=== PATIENT | male | born 1950 | race Caucasian/White ===

== ENCOUNTER 2019-10-22 05:12 | Observation (INO) ==
--- NOTE | 2019-09-23 15:23 | PAT Medication Instructions ---
Medication Instructions Date of Service September 23, 2019 Home Medications acetaminophen [Tylenol 8 Hour] 650 mg PO TID PRN aspirin [Aspir-81] 81 mg PO PM atenolol 25 mg PO BID atorvastatin 20 mg PO QAM cyanocobalamin (vitamin B-12) 1,000 mcg PO QAM fluticasone propionate [Flonase Allergy Relief] 1 spray INTRANASAL BID PRN hydrochlorothiazide 50 mg PO QAM lisinopril 20 mg PO QAM metformin 1,000 mg PO BID nifedipine [Adalat CC] 90 mg PO QAM omega 0-qqu-zew-fish oil [Fish Oil] 1 cap PO QAM omeprazole 20 mg PO QAM tramadol 50 mg PO TID PRN STOP taking 2 weeks before surgery omega 4-fnf-jdx-fish oil [Fish Oil] 1 cap PO QAM DO NOT take the morning of surgery cyanocobalamin (vitamin B-12) 1,000 mcg PO QAM hydrochlorothiazide 50 mg PO QAM lisinopril 20 mg PO QAM metformin 1,000 mg PO BID Take morning of surgery With a small sip of water, OTHERWISE NOTHING TO EAT OR DRINK AFTER MIDNIGHT: acetaminophen [Tylenol 8 Hour] 650 mg PO TID PRN (okay to take up to 4 hours prior to surgery if needed) atenolol 25 mg PO BID atorvastatin 20 mg PO QAM fluticasone propionate [Flonase Allergy Relief] 1 spray INTRANASAL BID PRN (if needed) nifedipine [Adalat CC] 90 mg PO QAM omeprazole 20 mg PO QAM tramadol 50 mg PO TID PRN (okay to take up to 4 hours prior to surgery if needed) Take evening before surgery acetaminophen [Tylenol 8 Hour] 650 mg PO TID PRN (if needed) aspirin [Aspir-81] 81 mg PO PM atenolol 25 mg PO BID fluticasone propionate [Flonase Allergy Relief] 1 spray INTRANASAL BID PRN (if needed) metformin 1,000 mg PO BID tramadol 50 mg PO TID PRN (if needed) Other Notes If you have any questions please call us at [phone] or [phone] or [phone] or [phone]
--- NOTE | 2019-09-26 15:47 | Anesthesiology Consultation ---
Date of Service September 26, 2019 Assessment & Plan (1) Encounter for pre-operative examination: Chart Review Chart Review: Acceptable Risk for Surgery (pending preop Covid testing) and Patient seen in Pre Admission Testing Per PAT appt on 09/26/19, pt traveled to [place] a few weeks ago to visit daughter. Plans to go this weekend to drop off daughter's dog. Will not be going out in public. Otherwise no other travel. Educated patient to follow up with surgeon's office regarding Covid testing. Educated on importance of self quarantining, social distancing and wearing mask in public both for the patient and household contacts. Teaching & Discussion Pre-Anesthesia Teaching/Discussion Notes: Instructed NPO after midnight before surgery,except medications with 15 cc of water. Medication instructions provided according to the PAT guidelines. History Surgery Operation Date: 10/22/19 08:50 Proposed Procedures p Right Total Knee Arthroplasty - Feliciano Golden MD Height/Weight Height: 5 ft 4 in Weight: 99.2 kg Allergies Allergy/AdvReac Type Severity Reaction Status Date / Time No Known Allergies Allergy Unverified 09/23/19 10:48 Medications Home Medications Medication Instructions Recorded Confirmed Last Taken acetaminophen [Tylenol 8 Hour] 650 mg PO TID PRN 09/23/19 09/23/19 Unknown aspirin [Aspir-81] 81 mg PO PM 09/23/19 09/23/19 Unknown atenolol 25 mg PO BID 09/23/19 09/23/19 Unknown atorvastatin 20 mg PO QAM 09/23/19 09/23/19 Unknown cyanocobalamin (vitamin B-12) 1,000 mcg PO QAM 09/23/19 09/23/19 Unknown fluticasone propionate [Flonase 1 spray INTRANASAL BID PRN 09/23/19 09/23/19 Unknown Allergy Relief] hydrochlorothiazide 50 mg PO QAM 09/23/19 09/23/19 Unknown lisinopril 20 mg PO QAM 09/23/19 09/23/19 Unknown metformin 1,000 mg PO BID 09/23/19 09/23/19 Unknown nifedipine [Adalat CC] 90 mg PO QAM 09/23/19 09/23/19 Unknown omega 0-wbs-jrj-fish oil [Fish Oil] 1 cap PO QAM 09/23/19 09/23/19 Unknown omeprazole 20 mg PO QAM 09/23/19 09/23/19 Unknown tramadol 50 mg PO TID PRN 09/23/19 09/23/19 Unknown Past Medical History Medical History Diabetes mellitus, type 2 NIDDM- well controlled and stable GERD (gastroesophageal reflux disease) Stable and controlled Herniated disc Lumbar area Hiatal hernia Hyperlipidemia Hypertension Osteoarthritis Sleep apnea CPAP Exercise / Class Metabolic Activity II 4-5 Yardwork/Stairs/Walk up hill (one flight of stairs-no chest pain or SOB) Past Family History Family History Father Diabetes Colon cancer Past Surgical History Surgical History History of colonoscopy History of left knee replacement History of tooth extraction History of total knee replacement LEFT Hx of umbilical hernia repair X2 Past Anesthesia History No Hx of Anesthesia Complications and No Family Hx of Anesthesia Complications History of PONV No Hx of PONV and No Hx of Motion Sickness Social History Smoking Status: Never smoker Do You Dip or Chew Tobacco: No Hx Alcohol Use: Yes Alcohol type: wine alcohol intake frequency: holidays/special occasions only Hx Substance Use: No substance use type: does not use Review of Systems Patient denies chest pain, shortness of breath, dyspnea on exertion, cough, wheezing, palpitations. No hx of seizures, stroke, [place]. No hx of blood clots or blood transfusions Physical Exam Vital Signs VITALS BP 155/89 P 68 TEMP 98.5 SP02 96% RESP 16 Constitutional no acute distress ENMT Mouth: no TMJ clicking Thyromental Distance: > or= 3.5 Finger Breadths Mallampati Class: III Top partial denture Neck + short neck, + thick neck and + limited neck extension (mild ) Respiratory normal respiratory effort; no respiratory distress Auscultation: lungs clear to auscultation bilaterally; no wheezes Cardiovascular Rate/Rhythm: regular rate and regular rhythm Heart Sounds: no murmur Vessels: no carotid bruit Musculoskeletal Spine: + pain with cervical ROM (minimal) Neurologic moves all extremities Psychiatric Orientation: alert Testing Laboratory Results 09/26/19 16:00 09/26/19 16:00 PT 10.3 Seconds (9.0-12.0) 09/26/19 16:00 INR 1.0 (0.9-1.1) 09/26/19 16:00 APTT 25.9 Seconds (21.0-31.0) 09/26/19 16:00 Hemoglobin A1c 6.6 % (4.5-5.6) H 09/26/19 16:00 Blood Type A Positive 09/26/19 16:00 Antibody Screen NEGATIVE 09/26/19 16:00 Electrocardiogram Date: 09/26/19 Findings: + NSR @ (65) Chest X-Ray Date: 09/26/19 Findings: + NAD
--- NOTE | 2019-09-26 16:18 | XRay Report ---
XR chest Pre-admission PA/Lat CLINICAL HISTORY: pat preoperative evaluation COMPARISON STUDY: 07/15/2015 FINDINGS: The bones soft tissues and hemidiaphragms are normal. The cardiomediastinal silhouette is n ormal. The lungs are clear. The pulmonary vasculature is normal. IMPRESSION: Negative chest. ACT 112: Negative or not required by law. The above report was generated using voice recognition software. It may contain grammatical, syntax or spelling errors. Electronically signed by: Les Alvares M.D. 09/26/2019 4:16 PM
[2019-09-26 16:33] LABS: Basophils # (auto) 0.01 K/uL (0-0.2); Basophils % (auto) 0.2 %; Eosinophils # (auto) 0.09 K/uL (0-0.5); Eosinophils % (auto) 1.9 %; Hematocrit (blood only) 41.5 % (42-52); Hemoglobin 14.4 g/dL (14.0-18.0); Immature Granulocytes # (auto) 0.03 K/uL (0.00-0.02); Immature Granulocytes % (auto) 0.6 %; Lymphocytes # (auto) 1.95 K/uL (1.2-3.4); Mean Corpuscular Hemoglobin 31.2 pg (25-34); Mean Corpuscular Hgb Conc 34.7 g/dL (32-36); Mean Corpuscular Volume 89.8 fL (80-100); Mean Platelet Volume 9.3 fL (7.4-10.4); Monocytes # (auto) 0.62 K/uL (0.11-0.59); Neutrophils # (auto) 2.06 K/uL (1.4-6.5); Neutrophils % (auto) 43.3 %; Platelet Count 253 K/uL (130-400); RDW Standard Deviation 42.6 fL (36.4-46.3); Red Blood Count 4.62 M/uL (4.7-6.1); White Blood Count 4.76 K/uL (4.8-10.8)
--- NOTE | 2019-09-26 16:37 | Electrocardiogram Report ---
Test Reason : Blood Pressure : / mmHG Vent. Rate : 065 BPM Atrial Rate : 065 BPM P-R Int : 178 ms QRS Dur : 084 ms QT Int : 434 ms P-R-T Axes : 014 -05 038 degrees QTc Int : 451 ms Normal sinus rhythm Normal ECG When compared with ECG of 15-JUL-2015 09:16, No significant change was found Confirmed by Get Cuellar ([id number]) on 09/26/2019 4:36:33 PM Referred By: Feliciano Golden Confirmed By:Get Cuellar
[2019-09-26 16:39] LABS: BUN Creatinine Ratio 15.3 (10-20); C Reactive Protein 0.35 mg/dl (0-0.29); Calcium 9.5 mg/dl (8.5-10.1); Creatinine Clr Calc Pharmacy 93.9 ml/min; Est GFR (African American) 106.2; Est GFR (Non-African American) 91.6; Potassium 3.5 mmol/L (3.5-5.1)
[2019-09-26 16:44] LABS: Partial Thromboplastin Ratio 0.9; Partial Thromboplastin Time 25.9 Seconds (21.0-31.0); Prothrombin Time 10.3 Seconds (9.0-12.0)
[2019-09-27 05:53] LABS: Estimated Average Glucose 143 mg/dl; Hemoglobin A1C 6.6 % (4.5-5.6)
[~2019-10-22 05:12] MED LIST: LR 500ML BOLUS, THEN 15ML/HR IV SCH
[2019-10-22] MEDS ORDERED: FAMOTIDINE 20 MG TAB PO SCH (06:00)
[2019-10-22] MEDS ORDERED: METOCLOPRAMIDE HCL 10 MG TABLET PO SCH (06:00)
[2019-10-22] MEDS ORDERED: TRANEXAMIC ACID 1,000 MG **IV Intra-op IV SCH (06:00)
[2019-10-22] MEDS ORDERED: CeleBREX 200 MG CAP PO SCH (06:00)
[2019-10-22] MEDS ORDERED: LR 60ML/HR IV SCH (06:00)
[2019-10-22] MEDS ORDERED: ACETAMINOPHEN 500 MG TAB PO SCH (06:00)
[2019-10-22] MEDS ORDERED: CEFAZOLIN 2000MG 2,000 MG/15 ML SYR IV SCH (06:00)
[2019-10-22] MEDS ORDERED: BUPIVACAINE LIPOSOME/PF 266 MG, BUPIVACAINE/EPINEPHRINE 50 ML, SODIUM CHLORIDE 0.9% 30 ... INFIL SCH (06:00)
[2019-10-22] MEDS ORDERED: GABAPENTIN 300 MG CAP PO SCH (06:00)
[2019-10-22] MEDS ORDERED: BUPIVACAINE 0.5 % 5 MG/1 ML PF 10ML VIAL ONE (06:20)
[2019-10-22] MEDS ORDERED: fentaNYL citrate 100 MCG/2 ML VIAL ONE (06:24)
[2019-10-22] MEDS ORDERED: MIDAZOLAM HCL 1 MG/ML 2ML VIAL ONE (06:24)
[2019-10-22] MEDS ORDERED: BUPIVACAINE/EPINEPHRINE 0.25% 1:200,000 30 ML VIAL ONE (06:29)
[2019-10-22] MEDS ORDERED: SODIUM CHLORIDE 0.9% PF 50 ML VIAL ONE (06:29)
[2019-10-22] MEDS ORDERED: BUPIVACAINE LIPOSOME 1.3% 266 MG/20 ML VIAL ONE (06:29)
[2019-10-22] MEDS ORDERED: BACITRACIN INJ 50,000 UNIT VIAL ONE (06:29)
[2019-10-22] MEDS ORDERED: ATROPINE SULFATE 0.1 MG/ML 10ML SYR IV PRN (06:38)
[2019-10-22] MEDS ORDERED: ePHEDrine sulfate 50 MG/ML AMP IV PRN (06:38)
[2019-10-22] MEDS ORDERED: ONDANSETRON INJ 2 MG/ML 2 ML VIAL IV PRN ×2 (06:38→09:56)
[2019-10-22] MEDS ORDERED: fentaNYL citrate 100 MCG/2 ML VIAL IV PRN (06:38)
--- NOTE | 2019-10-22 06:51 | History & Physical Bridge Note ---
Date of Service October 22, 2019 History & Physical Bridge Note I have examined the patient, reviewed the History & Physical and in the interval since the performance of the History & Physical I have noted the following changes of clinical significance: no changes noted
[2019-10-22] MEDS ORDERED: PROPOFOL IV EMULSION 10 MG/ML 20 ML VIAL IV ONE ×2 (07:03→07:53)
--- NOTE | 2019-10-22 08:30 | Post Operative Brief Note ---
PG Immediate Post Op with CF Date of Surgery October 22, 2019 Pre & Post Diagnosis Operation Date: 10/22/19 07:00 Pre-Op Diagnosis: Right Knee Advanced Degenerative Joint Disease Post-Op Diagnosis: Right Knee Advanced Degenerative Joint Disease I identified the patient and participated in the time-out.: Yes Procedure Operation Date: 10/22/19 07:00 Actual Procedures p Right Total Knee Arthroplasty(Right) - Feliciano Golden MD Surgeon Feliciano Golden MD Tape Calender Yuki, PAC Estimated Blood Loss 50 Findings Consistent with Post-Op Diagnosis Fluids 1300 cc Specimens Specimen Description: A. Right Knee Bone and Tissue Drains Juan Catheter Anesthesia Type Spinal MAC Complications none Disposition Accompanied Patient To Recovery: No Disposition: Recovery Room
--- NOTE | 2019-10-22 08:53 | XRay Report ---
TWO VIEWS RIGHT KNEE CLINICAL HISTORY: Postoperative examination. FINDINGS: AP and crosstable lateral portable views of the right knee are obtained. A right knee arthr oplasty is in near anatomic alignment. There has been undersurface remodeling of the patella. No acut e fracture is seen. There are expected postoperative changes around the knee including skin clips, so ft tissue edema, and subcutaneous gas. IMPRESSION: Expected postoperative changes status post right knee arthroplasty. No acute fracture is seen. ACT 112: Negative or not required by law. Electronically signed by: Sj Dai M.D. 10/22/2019 8:52 AM
--- NOTE | 2019-10-22 09:29 | Anesthesiology Progress Note ---
Date of Service October 22, 2019 Anesthesia Post Procedure Vital Signs Vital Signs: Temp Pulse Pulse Resp BP Pulse Ox 10/22/19 09:25 98.2 F 74 18 148/84 H 96 10/22/19 09:15 75 18 146/76 H 95 10/22/19 09:05 76 18 135/71 96 10/22/19 08:55 75 16 132/81 93 10/22/19 08:45 72 16 134/74 100 10/22/19 08:35 97.2 F L 74 12 125/70 99 10/22/19 06:05 98.1 F 68 18 156/94 H 96 10/22/19 05:39 99.0 F 74 20 175/91 H 96 Transfer of Care Handoff Completed per policy Notes Mental Status: alert / awake / arousable and participated in evaluation Patient Amnestic to Procedure: Yes Nausea / Vomiting: adequately controlled Pain: adequately controlled Airway Patency, RR, SpO2: stable & adequate BP & HR: stable & adequate Hydration State: stable & adequate Neuraxial Anesthesia: was administered and sensory block is resolving Anesthetic Complications: no major complications apparent and Pt Satisfied with anesthetic care
[2019-10-22] MEDS ORDERED: DEXTROSE 50% 50 ML SYRINGE IV PRN (09:56)
[2019-10-22] MEDS ORDERED: bisacodyL 10 MG SUPP PR PRN (09:56)
[2019-10-22] MEDS ORDERED: TAMSULOSIN HCL 0.4 MG CAP PO PRN (09:56)
[2019-10-22] MEDS ORDERED: METOCLOPRAMIDE HCL INJ 5 MG/ML 2 ML VIAL IV PRN (09:56)
[2019-10-22] MEDS ORDERED: MAGNESIUM HYDROXIDE SUSP 30 ML UDC PO PRN (09:56)
[2019-10-22] MEDS ORDERED: GLUCAGON FOR INJ 1 MG VIAL SQ PRN (09:56)
[2019-10-22] MEDS ORDERED: HYDROmorphone INJ 0.5 MG/0.5 ML SYR IV PRN (09:56)
[2019-10-22] MEDS ORDERED: FLUTICASONE PROPIONATE NA SPR 16 GM BTL NAE PRN (09:56)
[2019-10-22] MEDS ORDERED: GLUCOSE 40% GEL 15 GM TUBE PO PRN (09:56)
[2019-10-22] MEDS ORDERED: GLUCOSE 10 TABS/TUBE PO PRN (09:56)
[2019-10-22] MEDS ORDERED: ATORVASTATIN 20 MG TAB PO SCH (09:56)
[2019-10-22] MEDS ORDERED: ALUMINUM/MAGNESIUM SUSP 30 ML UDC PO PRN (09:56)
[2019-10-22] MEDS ORDERED: NALOXONE HCL 0.4 MG/1 ML VIAL/CARP IV PRN (09:56)
[2019-10-22] MEDS ORDERED: CARBOHYDRATES FOR HYPOGLYCEMIA PO PRN (09:56)
[2019-10-22] MEDS ORDERED: PHARMACY GLYCEMIC MGMT CONSULT PRN (09:59)
--- NOTE | 2019-10-22 10:12 | Pharmacy Report ---
Pharmacy Glycemic Short Note 2 - Date of Service October 22, 2019 - Glycemic Short BSG Results (Last 24 hours): 10/22/19 10/22/19 05:26 08:38 POC Glucose 151 H 158 H OUTPATIENT ANTIDIABETIC REGIMEN: * Metformin 1000 mg PO BID * A1c = 6.6% 09/26/19 ASSESSMENT: * Jovan is a 69 yo T2DM male s/p R TKA * Patient did not receive steroids eze-op * He is maintained on metformin as an outpatient. Metformin will be held until evidence of renal function at baseline and pt tolerating an oral diet. PLAN FOR INPATIENT GLYCEMIC CONTROL: * Hold outpatient oral diabetes medications * Basal insulin * none * Bolus insulin * NovoLog per scale ACHS or Q6hrs while NPO * Goal Range: Low 110 mg/dL - High 140 mg/dL * Correction Factor: 25 mg/dL/unit * Nutritional / Prandial insulin per carb ratio of 1 unit per 8 grams CHO consumed PLAN FOR DISCHARGE: * A1c of 6.6% is at goal * Continue current outpatient regimen on discharge
[2019-10-22] MEDS: GENERAL ORDER PROBLEM SCH ×3 (10:32→10:34)
[2019-10-22] MEDS: SODIUM CHLORIDE 0.9% 1000ML 1,000 ML IV SCH ×2 (11:39→21:18)
[2019-10-22] MEDS: ATENOLOL 25 MG TABLET PO SCH ×2 (11:41→20:11)
[2019-10-22] MEDS: OMEGA-3 (PURIFIED FISH OIL) 1 GM CAP PO SCH (11:42)
[2019-10-22] MEDS: ASPIRIN 81 MG ECTAB PO SCH ×2 (11:42→20:11)
[2019-10-22] MEDS: TAPENTADOL HCL ER 50 MG TABCR PO SCH ×2 (11:42→20:16)
[2019-10-22] MEDS: DOCUSATE SODIUM 100 MG CAP PO SCH ×2 (11:43→20:11)
[2019-10-22] MEDS: CYANOCOBALAMIN 500 MCG TABLET (VITAMIN B-12) PO SCH (11:43)
[2019-10-22] MEDS: lisinopriL 20 MG TAB PO SCH (11:43)
[2019-10-22] MEDS: MULTIVITAMIN TAB PO SCH (11:43)
[2019-10-22] MEDS: hydroCHLOROthiazide 25 MG TAB PO SCH (11:44)
[2019-10-22] MEDS: KETOROLAC TROMETHAMINE 15 MG/ML VIAL IV SCH ×3 (11:44→22:41)
[2019-10-22] MEDS: ACETAMINOPHEN 500 MG TAB PO SCH ×2 (13:12→21:10)
[2019-10-22] MEDS: INSULIN ASPART 100 UNITS/ML 3 ML PEN SC SCH ×3 (13:13→21:12)
[2019-10-22] MEDS ORDERED: Nursing to Pharmacy Communication SCH (14:00)
[2019-10-22] MEDS ORDERED: TRANEXAMIC ACID / 0.7% NACL 1,000 MG/100 ML BAG IV SCH (14:34)
[2019-10-22] MEDS: CEFAZOLIN 2000MG 2,000 MG/15 ML SYR IV SCH ×2 (14:36→22:41)
[2019-10-22] MEDS: FERROUS GLUCONATE 324 MG TAB PO SCH (17:28)
[2019-10-22] MEDS: ASCORBIC ACID 500 MG TAB PO SCH (17:28)
--- NOTE | 2019-10-22 18:11 | Operative Report ---
Post Operative Report Pre & Post Diagnosis Operation Date: 10/22/19 07:00 Pre-Op Diagnosis: Right Knee Advanced Degenerative Joint Disease Post-Op Diagnosis: Right Knee Advanced Degenerative Joint Disease I identified the patient and participated in the time-out.: Yes Procedure Operation Date: 10/22/19 07:00 Actual Procedures p Right Total Knee Arthroplasty(Right) - Feliciano Golden MD Surgeon Feliciano Golden MD Clinical Radiologist Yuki, PAC Estimated Blood Loss 50 Findings Consistent with Post-Op Diagnosis Operative findings revealed a very stiff knee. He had about a 10 to 15 degree flexion contracture can only flex about 100 degrees passively. He had extensive grade 4 kdpk-zv-cmot disease in all 3 compartments most severe in the medial side. He had osteophytes in all 3 compartments. Moderate sized joint effusion and a fixed varus deformity to his knee. Fluids 1300 cc. Specimens Right knee sent for pathology. Drains None. Anesthesia Type Spinal MAC Disposition Accompanied Patient To Recovery: Yes Disposition: Recovery Room Indications Patient is a 69-year-old gentleman is had a long history of knee problems. He underwent a left knee replacement about 4 years ago and is done well from this. He continued be limited by right knee pain discomfort and stiffness. He failed all conservative measures. He elected proceed with surgical treatment. Description of Procedure Operative implants consisted of: 1. Biomet Vanguard size 65 right posterior by femoral component. 2. Biomet size 71 tibial tray. 3. 12 mm posterior bite polyethylene insert. 4. 31 x 8 all poly-patella. Patient was taken to the operating room identified and placed on the operating table supine position protectors were properly padded. IV antibiotics 5 by anesthesia team. A spinal anesthetic and abductor canal block had provided holding area. Juan catheter was placed in sterile fashion. Right thigh turn was then placed in the right lower extremity was then prepped and draped in usual sterile fashion. The right leg was elevated and exsanguinated with use of an Esmarch interspace at 300 mmHg. An anterior approach to the right knee was then performed through a longitudinal incision centered over the patella. Sharp dissection Through the subcutaneous tissue down to the extensor mechanism. Medial parapatellar arthrotomy incision was made. Some subperiosteal dissection was carried out medially. The fat pad was resected from each patella tendon. Lateral patellofemoral ligament was released. Patella was subluxated laterally and the knee was flexed. The osteophytes were taken off the distal femur. The ACL and PCL were then released in the distal femur and the tibia subluxate anteriorly. The external tibial alignment jig was then placed in the interface the tibia and adjusted 14 mm medially. Proximal tibial cut was made essentially flush with the most efficient aspect of the posterior medial tibial plateau. He did have quite a bit of wear posterior medially. Some osteophytes taken off medially. The tibia sized to a size 71. Attention drawn the femur. The distal femur entered with the drill. Intramedullary canal was suction. A right 6 degree valgus cutting guide was placed. This femoral cutting block was pinned in place but distal femoral cut was made to take an additional 3 mm of bone off distal femur. The femur was then sized to a size 65. The AP cutting block was pinned parallel to the epicondylar axis. The anterior cut, anterior chamfer, posterior cut, posterior chamfer cuts were made. Box cutting guide was placed in just slight lateral box cut was made. The knee was flexed. The remnants of the medial lateral menisci were excised. The osteophytes were taken off the posterior aspect of the femur. Trial femoral component was placed. The tibial tray was pinned in maximum external rotation of the drill and stem punch used to create defect in proximal tip of the tibial tray. Knee was then trialed the 12 mm insert fit most appropriately. Attention drawn the patella. The patella was cleaned of all soft tissues. Patella thickness measured 22 mm in thickness was cut down to 13. Was sized to a size 31 patella. Locals were drilled for 31 patella. The lateral osteophyte is moved. Patella button was placed. Knee was taken through range of motion and the patella tracked nicely with no thumbs test. Attention drawn to placing permanent components. All trial components were removed. A bone plug was placed in the distal femur limit blood loss. A double batch [place] G cement was mixed. Biomet Vanguard size 65 right posterior by femoral component, size 71 tibial tray, a 12 mm posterior box polyethylene insert, and a 31 x 8 all poly-patella were then cemented in place. Knee was brought out into full extension total cement hardened. Final cement check was then performed. The pericapsular tissues were injected with total 100 cc of combination of 20 of Exparel, 30 cc normal saline, 50 cc of quarter percent Marcaine with epinephrine. The patient did receive 1 g tranexamic acid per the tech was then let down for final tourniquet time 51 minutes. Hemostasis assured use electrocautery. Extensor mechanism closed with combination 1 PDS suture #1 Vicryl suture in ozkien-hg-echli fashion. Extensor mechanism checked found to be intact the subcutaneous tissue then closed with 2 Dexon suture in a buried interrupted fashion skin was closed skin antonieta. Leg was then cleaned dried and sterile dressed composed Xeroform, 4 x 4's, sterile cast padding, Erik bandage were applied. Patient transferred to the recovery room in stable condition. Patient tolerated procedure well and there were no complications. Jin Parisi, my physician health assistant, was present for the entire procedure. His health assistant was required for appropriate patient positioning, prepping and draping, surgical exposure, performing the technical details the operation, placement the implants, closure of the wound, and placement of the sterile bandage. I attest to the content of the Intraoperative Record and any orders documented therein. Any exceptions are noted below.
[2019-10-22] MEDS: ATORVASTATIN 20 MG TAB PO SCH (20:11)
[2019-10-22] MEDS: SENNA 8.6 MG TAB PO SCH (20:11)
[2019-10-23] MEDS: OXYCODONE HCL IR 5 MG TAB (IMMEDIATE RELEASE) PO PRN ×2 (04:33→11:17)
[2019-10-23] MEDS: ACETAMINOPHEN 500 MG TAB PO SCH ×2 (05:47→14:08)
[2019-10-23] MEDS: KETOROLAC TROMETHAMINE 15 MG/ML VIAL IV SCH ×3 (05:47→17:56)
--- NOTE | 2019-10-23 07:25 | Orthopedic Progress Note ---
Date of Service October 23, 2019 Assessment & Plan (1) Status post total right knee replacement: He was seen and examined by Dr. Golden. Continue PT/OT Pain controlled. DVT prophylaxis: teds, scds, aspirin d/c planning: home with home health likely tomorrow Admission and Anticipated Discharge Date Admission Date: October 22, 2019 Subjective 69 y/o male, POD #1 from right tka. He's doing well. Denies chest pain or shortness of breath. Has some knee pain but controlled. Physical Exam Physical Exam: alert and oriented. NAD Right leg: Dressing clean, dry, intact. NVI. DF and PF appropriately. VSS Results & Data ([facility]) Vital Signs (Past 12 Hours) Vital Signs Temp Pulse Pulse Resp BP BP Pulse Ox 10/23/19 07:13 37.4 C 73 16 166/94 H 93 10/23/19 04:30 156/90 H 10/23/19 04:19 37.2 C 78 16 170/91 H 169/96 H 95 10/23/19 01:11 37.2 C 159/93 H 10/22/19 23:26 37.9 C H 80 16 165/84 H 95 10/22/19 23:02 158/94 H 10/22/19 22:45 37.7 C H 82 174/99 H 10/22/19 20:47 37.8 C H 75 17 165/95 H 97 10/22/19 20:10 37.2 C 10/22/19 20:05 37.8 C H 74 18 165/94 H 97 PG Care Time/CCT Total # of Minutes Spent Total Time Spent with Patient: Total time spent is greater than 50% in coordination of care (as documented) at patient's floor/unit and/or counseling patient: Coding Level of Care Code None Diagnoses Status post total right knee replacement Z96.651
[2019-10-23 08:02] LABS: Hematocrit (blood only) 39.5 % (42-52); Hemoglobin 13.8 g/dL (14.0-18.0); Mean Corpuscular Hemoglobin 30.5 pg (25-34); Mean Corpuscular Hgb Conc 34.9 g/dL (32-36); Mean Corpuscular Volume 87.2 fL (80-100); Mean Platelet Volume 9.3 fL (7.4-10.4); Platelet Count 251 K/uL (130-400); RDW Coefficient of Variation 12.7 % (11.5-14.5); RDW Standard Deviation 40.9 fL (36.4-46.3); Red Blood Count 4.53 M/uL (4.7-6.1); White Blood Count 7.18 K/uL (4.8-10.8)
[2019-10-23 08:03] LABS: BUN Creatinine Ratio 13.1 (10-20); Calcium 9.2 mg/dl (8.5-10.1); Creatinine Clr Calc Pharmacy 84.3 ml/min; Est GFR (African American) 102.1; Est GFR (Non-African American) 88.1
--- NOTE | 2019-10-23 08:08 | Anesthesiology Progress Note ---
Date of Service October 23, 2019 Anesthesia Post Procedure Vital Signs Vital Signs: Temp Pulse Pulse Pulse Resp BP BP 10/23/19 07:13 37.4 C 73 16 166/94 H 10/23/19 04:30 156/90 H 10/23/19 04:19 37.2 C 78 16 170/91 H 169/96 H 10/23/19 01:11 37.2 C 159/93 H 10/22/19 23:26 37.9 C H 80 16 165/84 H 10/22/19 23:02 158/94 H 10/22/19 22:45 37.7 C H 82 174/99 H 10/22/19 20:47 37.8 C H 75 17 165/95 H 10/22/19 20:10 37.2 C 10/22/19 20:05 37.8 C H 74 18 165/94 H 10/22/19 15:26 36.9 C 69 18 148/85 H 10/22/19 12:44 36.6 C 76 18 153/91 H 10/22/19 11:33 74 20 154/89 H 10/22/19 10:36 36.7 C 74 18 156/91 H 10/22/19 10:06 72 16 155/89 H 10/22/19 09:35 36.1 C L 75 22 157/84 H 10/22/19 09:25 36.8 C 74 18 148/84 H 10/22/19 09:15 75 18 146/76 H 10/22/19 09:05 76 18 135/71 10/22/19 08:55 75 16 132/81 10/22/19 08:45 72 16 134/74 10/22/19 08:35 36.2 C L 74 12 125/70 Pulse Ox 10/23/19 07:13 93 10/23/19 04:30 10/23/19 04:19 95 10/23/19 01:11 10/22/19 23:26 95 10/22/19 23:02 10/22/19 22:45 10/22/19 20:47 97 10/22/19 20:10 10/22/19 20:05 97 10/22/19 15:26 10/22/19 12:44 93 10/22/19 11:33 97 10/22/19 10:36 94 10/22/19 10:06 94 10/22/19 09:35 96 10/22/19 09:25 96 10/22/19 09:15 95 10/22/19 09:05 96 10/22/19 08:55 93 10/22/19 08:45 100 10/22/19 08:35 99 Notes Mental Status: alert / awake / arousable Nausea / Vomiting: adequately controlled Pain: adequately controlled Airway Patency, RR, SpO2: stable & adequate BP & HR: stable & adequate Hydration State: stable & adequate Neuraxial Anesthesia: was administered and sensory block resolved Anesthetic Complications: no major complications apparent and Pt Satisfied with anesthetic care
[2019-10-23] MEDS: CYANOCOBALAMIN 500 MCG TABLET (VITAMIN B-12) PO SCH (08:35)
[2019-10-23] MEDS: ATENOLOL 25 MG TABLET PO SCH ×2 (08:35→20:29)
[2019-10-23] MEDS: lisinopriL 20 MG TAB PO SCH (08:35)
[2019-10-23] MEDS: PANTOprazole 40 MG TAB PO SCH (08:35)
[2019-10-23] MEDS: FERROUS GLUCONATE 324 MG TAB PO SCH ×2 (08:35→17:21)
[2019-10-23] MEDS: MULTIVITAMIN TAB PO SCH (08:35)
[2019-10-23] MEDS: ASCORBIC ACID 500 MG TAB PO SCH ×2 (08:35→17:21)
[2019-10-23] MEDS: hydroCHLOROthiazide 25 MG TAB PO SCH (08:35)
[2019-10-23] MEDS: ASPIRIN 81 MG ECTAB PO SCH ×2 (08:35→20:29)
[2019-10-23] MEDS: OMEGA-3 (PURIFIED FISH OIL) 1 GM CAP PO SCH (08:36)
[2019-10-23] MEDS: NIFEdipine EXTENDED REL 30 MG TABCR PO SCH (08:36)
[2019-10-23] MEDS: DOCUSATE SODIUM 100 MG CAP PO SCH ×2 (08:36→20:30)
[2019-10-23] MEDS: INSULIN ASPART 100 UNITS/ML 3 ML PEN SC SCH ×4 (08:37→20:33)
[2019-10-23] MEDS: TAPENTADOL HCL ER 50 MG TABCR PO SCH ×2 (08:42→20:30)
[2019-10-23] MEDS: METFORMIN HCL 500 MG TAB PO SCH ×2 (10:01→17:21)
--- NOTE | 2019-10-23 14:22 | Pharmacy Report ---
Pharmacy Glycemic Short Note 2 - Date of Service October 23, 2019 - Glycemic Short BSG Results (Last 24 hours): 10/22/19 10/22/19 10/23/19 17:28 20:43 06:57 Glucose 163 H POC Glucose 162 H 144 H 10/23/19 10/23/19 08:06 12:21 Glucose POC Glucose 177 H 178 H OUTPATIENT ANTIDIABETIC REGIMEN: * Metformin 1000 mg PO BID * A1c = 6.6% 09/26/19 ASSESSMENT: * Jovan is a 69 yo T2DM male POD #1 s/p R TKA * He received 17 units of SQ insulin yesterday * Fasting BSG of 177 mg/dL is above goal. If this trend continues, basal insulin will be added. * Will resume metformin. Post prandial BSGs are slightly above goal. I will hold off on tightening Novlolg coverage since metformin is being started today. PLAN FOR INPATIENT GLYCEMIC CONTROL: * Resume metformin 1000 mg PO BID * Basal insulin * none * Bolus insulin * NovoLog per scale ACHS or Q6hrs while NPO * Goal Range: Low 110 mg/dL - High 140 mg/dL * Correction Factor: 25 mg/dL/unit * Nutritional / Prandial insulin per carb ratio of 1 unit per 8 grams CHO consumed PLAN FOR DISCHARGE: * A1c of 6.6% is at goal * Continue current outpatient regimen on discharge
[2019-10-23] MEDS: ATORVASTATIN 20 MG TAB PO SCH (20:29)
[2019-10-23] MEDS: SENNA 8.6 MG TAB PO SCH (20:30)
[2019-10-24] MEDS: OXYCODONE HCL IR 5 MG TAB (IMMEDIATE RELEASE) PO PRN (00:39)
[2019-10-24] MEDS: KETOROLAC TROMETHAMINE 15 MG/ML VIAL IV SCH ×2 (00:40→05:51)
[2019-10-24] MEDS: ACETAMINOPHEN 500 MG TAB PO SCH ×2 (00:40→05:52)
[2019-10-24] MEDS: PANTOprazole 40 MG TAB PO SCH (08:21)
[2019-10-24] MEDS: OMEGA-3 (PURIFIED FISH OIL) 1 GM CAP PO SCH (08:21)
[2019-10-24] MEDS: DOCUSATE SODIUM 100 MG CAP PO SCH (08:22)
[2019-10-24] MEDS: ATENOLOL 25 MG TABLET PO SCH (08:22)
[2019-10-24] MEDS: NIFEdipine EXTENDED REL 30 MG TABCR PO SCH (08:22)
[2019-10-24] MEDS: CYANOCOBALAMIN 500 MCG TABLET (VITAMIN B-12) PO SCH (08:22)
[2019-10-24] MEDS: FERROUS GLUCONATE 324 MG TAB PO SCH (08:23)
[2019-10-24] MEDS: METFORMIN HCL 500 MG TAB PO SCH (08:23)
[2019-10-24] MEDS: lisinopriL 20 MG TAB PO SCH (08:23)
[2019-10-24] MEDS: MULTIVITAMIN TAB PO SCH (08:23)
[2019-10-24] MEDS: hydroCHLOROthiazide 25 MG TAB PO SCH (08:23)
[2019-10-24] MEDS: ASCORBIC ACID 500 MG TAB PO SCH (08:24)
[2019-10-24] MEDS: TAPENTADOL HCL ER 50 MG TABCR PO SCH (08:24)
[2019-10-24] MEDS: ASPIRIN 81 MG ECTAB PO SCH (08:24)
[2019-10-24] MEDS: INSULIN ASPART 100 UNITS/ML 3 ML PEN SC SCH (08:41)
--- NOTE | 2019-10-24 09:31 | Progress Notes ---
DATE: 10/24/2019 SUBJECTIVE: A 69-year-old gentleman postop day 2 from right knee replacement. He is doing pretty well. Pain is controlled. Denies any chest pain or shortness of breath. Not feeling dizzy or lightheaded. OBJECTIVE: VITAL SIGNS: Temperature 37.2. Vital signs stable. GENERAL: Shows a pleasant, middle-aged male. He is sitting up in his bedside chair, looks pretty comfortable. EXTREMITIES: Examination of the right leg reveals the dressing to be clean, dry and intact. Calf is soft and supple. He is neurologically intact. ASSESSMENT: A 69-year-old gentleman postoperative day 2 from right knee replacement, doing pretty well. Pain is controlled. He is neurologically intact. PLAN: 1. DVT prophylaxis including thigh-high TEDs, SCDs, and aspirin twice a day. 2. PT/OT. Weight bear as tolerated. Right total knee protocol. 3. Pain control, doing pretty well with current pain regimen. 4. Disposition: Plan to discharge to home with some home health later today.
--- NOTE | 2019-10-29 06:34 | Discharge Summary ---
Date of Service October 29, 2019 Admission HPI Per Admitting Provider Documented in the H & P Admission Exam (Per Admitting) Constitutional Documented in the H & P Discharge Data Consultations 10/22/19 09:56 Consult Case Management - Discharge Planning Routine Procedures Performed Operation Date: 10/22/19 07:00 Actual Procedures p Right Total Knee Arthroplasty(Right) - Feliciano Golden MD Hospital Course (1) Status post total right knee replacement: This patient is a 69 year old male admitted on 10/22/19 and underwent total knee arthroplasty. He tolerated the procedure well and there were no complications. Transferred to the PACU post op and later to the orthopedic floor for further care. He was given ancef for antibiotic prophylaxis. He was also given VALE stockings, SCDs, and aspirin for DVT prophylaxis. Hemoglobin, hematocrit, and vital signs were monitored during his hospital stay and remained stable. Did not require any blood transfusions. There were no complications during his hospital stay. By post op day #2 the patient was tolerating a diabetic diet, pain was reasonably controlled with oral pain medicine, and he was participating in physical therapy. On post op day #2 the patient was discharged home and set up with home health care. He was given printed discharge instructions including prescriptions for extra strength tylenol, aspirin, and oxycodone. Continue physical therapy, weight bearing as tolerated. Continue VALE stockings. Follow up approximately 2 weeks post op or sooner if there are problems or concerns. Coding Level of Care Code None Diagnoses Status post total right knee replacement Z96.651
== END 2019-10-24 11:07 | disposition home health service (06) ==
LOC: 3E 05:12 → ASU 05:12